=== PATIENT | male | born 1990 | race Two or more races ===

== ENCOUNTER 2024-09-15 14:12 | Emergency (ER) | payer MEDICAID, SELFPAY ==
[2024-09-15 14:14] VITALS: BMI 24.0
[2024-09-15 15:03] VITALS: BP 109/78; PULSE 72; RESP 18; TEMP 37.2; O2SAT 98
--- NOTE | 2024-09-15 15:21 | PD.EDHA ---
ED Headache RME/HPI General Chief Complaint: Headache Stated Complaint: Left face pain x 8 mo. Pain 05/03 Time Seen by Provider: 09/15/24 14:54 Arrival date/time: 09/15/24 14:12 left side face pain for 8months Related Data Previous Rx's ?Medication ?Instructions ?Recorded gabapentin 100 mg capsule 100 mg PO TID PRN nerve pain #60 09/15/24 caps Allergies Allergy/AdvReac Type Severity Reaction Status Date / Time No Known Allergies Allergy Verified 05/31/22 08:26 Review of Systems Review of Systems Systems Reviewed: All systems reviewed, normal except as documented Narrative Review of Systems: Gen: No fever, no chills, no weight loss EYES: No discharge, no visual changes, no pain HEENT: No ear pain, no congestion, no sore throat PULM: No shortness of breath, no cough, no congestion CV: No chest pain, no dyspnea on exertion, no palpitations GI: No nausea, no vomiting, no diarrhea, no pain, no constipation : No frequency, no urgency,? no dysuria Musc/skel: No joint pain, no back pain Skin: No rash? Psyc: No hallucinations, no depression Heme/Lymph: No easy bleeding or bruising tendencies Neuro: No weakness, no headache ED Exam Narrative Physical exam: General: Sittiing in Exam table in no acute distress, answering questions appropriately HENT: normocephalic, atraumatic, EOMI, PERRLA, moist mucous membranes Chest: chest wall is nontender Cardiac: regular rate and rhythm, normal S1 and S2, no murmurs, rubs, or gallops, capillary refill ?2 seconds Pulmonary: clear to auscultation bilaterally, no wheezing, crackles, or rhonchi Abdominal: active bowel sounds, soft, nontender, nondistended Neuro: A&OX3, CN II-XII intact, sensation grossly intact bilaterally in UE and LE. Skin: no rashes, no ecchymosis Ext: no lower extremity edema Course Quality Measures none Vital Signs Vital signs: Vital Signs Temperature 98.9 F 09/15/24 15:03 Pulse Rate 72 09/15/24 15:03 Respiratory Rate 18 09/15/24 15:03 Blood Pressure 109/78 09/15/24 15:03 Pulse Oximetry (%) 98 09/15/24 15:03 Oxygen Delivery Method Room Air 09/15/24 15:03 Headache Patient data External records reviewed:: [facility] previous records Clinical information provided by:: patient Social determinants that could affect healthcare access:: none Patient has the following chronic illnesses:: none How is presenting disease/condition affected by chronic disease/condition?: no chronic disease Evaluation data The following diagnostics were reviewed and interpreted by me:: other (specify) Lab and/or radiology exams considered but not ordered:: none Interpretation Summary: none Medications / Prescriptions Medications or Prescriptions considered but not ordered:: none Medication administrations:: none Consultations Consultation(s) initiated? (list below): No Diagnosis Differential diagnosis headache: other Most likely diagnosis given after review of the tests above:: Trigeminal Nerve Disorder Admission Indicated Admission indicated?: not indicated Admission Request Was there a request for admission?: No Disposition Plan Disposition Plan: Discharge Discharge Attestation Discharge Attestation: The patient and all family members were given an opportunity to ask questions and understood the discharge instructions. Discharge instructions specifically effects, indications for sooner follow up or return to the emergency department, and the expected course of current diagnosis. Patient condition: Stable Discharge Plan Plan Patient Disposition: HOME (Self Care) Patient condition on transfer: Stable Prescriptions/Referrals Prescriptions/Med Rec: New gabapentin 100 mg capsule 100 mg PO TID PRN (Reason: nerve pain) Qty: 60 0RF Problem List Clinical Impression: Trigeminal nerve disorder Patient/Caregiver Discharge Instructions Discharge Activity: activity as tolerated Additional Instructions: Please keep your appointment with your neurologist. Start gabapentin 100 mg 3 times a day Follow-up with your primary doctor as directed. Return to the emergency department this any worsening symptoms new condition. 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
== END 2024-09-15 16:20 | disposition home or self-care (01) ==
LOC: SERX 16:13
PROVIDERS: Emergency Provider Emergency Medicine; PCP Nurse Practitioner Family
DX: G50.9 Disorder of trigeminal nerve, unspecified (principal)
CPT/HCPCS: 99281

== ENCOUNTER 2025-06-03 18:36 | Emergency (ER) | payer MEDICAID, SELFPAY ==
[2025-06-03 18:36] VITALS: BMI 24.7
[2025-06-03 20:46] VITALS: BP 119/76; PULSE 75; RESP 16; TEMP 36.7; O2SAT 97
--- NOTE | 2025-06-03 21:10 | XR_ITS ---
EXAMINATION: Testicular sonography complete TECHNIQUE: Grayscale sonographic images testes, assessment arterial inflow and venous outflow with Doppler spectral analysis color flow analysis Date and time: June 03, 2025, 2127 hours, comparison May 31, 2022 INDICATIONS: Bilateral testicular swelling and pain beginning 3 days ago. FINDINGS: Right testis 5.1 cm epididymis 14 mm Arterial flow the testicle. No testicular mass Minimal hydrocele Left testis 4.6 cm epididymis 14 mm Arterial flow to the testicle. Appendix testis 4 x 5 mm No testicular mass Mild hydrocele IMPRESSION: No testicular torsion or testicular mass Mild bilateral hydroceles
--- NOTE | 2025-06-03 21:10 | PD.EDRME ---
Rapid Medical Screening Exam E Arrival date/time: 06/03/25 18:36 34-year-old male reports with complaints of right testicular pain after an examination from his provider 2 days ago Chief Complaint: Urogenital-Male Time Seen by Provider: 06/03/25 20:55 Vital signs: Vital Signs Temperature 98.1 F 06/03/25 20:46 Pulse Rate 75 06/03/25 20:46 Respiratory Rate 16 06/03/25 20:46 Blood Pressure 119/76 06/03/25 20:46 Pulse Oximetry (%) 97 06/03/25 20:46 Oxygen Delivery Method Room Air 06/03/25 20:46 Exam: ? Clinical Impression: ?
--- NOTE | 2025-06-03 22:21 | PD.EDMALE ---
ED Male Genitalurinary RME/HPI General Chief complaint: Urogenital-Male Stated complaint: TESTICLE PAIN/SWELLING X 3 DAYS Time Seen by Provider: 06/03/25 20:55 Arrival date/time: 06/03/25 18:36 RME / HPI RME / HPI Narrative: 06/03/25 18:36 34-year-old male reports with complaints of right testicular pain after an examination from his provider [address] 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 No dysuria or urgency, but reports frequency. Reports mild suprapubic abdominal tenderness. No fever, chills, or diarrhea. PMH unremarkable. Related Data Previous Rx's ?Medication ?Instructions ?Recorded gabapentin 100 mg capsule 100 mg PO TID PRN nerve pain #60 09/15/24 caps ciprofloxacin HCl 500 mg tablet 500 mg PO BID 10 days #20 tabs 06/03/25 (Cipro) naproxen 250 mg tablet 250 mg PO BID PRN pain #10 tabs 06/03/25 Allergies Allergy/AdvReac Type Severity Reaction Status Date / Time No Known Allergies Allergy Verified 06/03/25 18:38 Review of Systems Review of Systems Systems Reviewed: All systems reviewed, normal except as documented Past Medical History Past Medical History CARDIAC: Negative Congestive Heart Failure RESPIRATORY: Negative Chronic Obstructive Pulmonary Disease (COPD) GENITOURINARY: Negative Renal Disease ENDOCRINE: Negative Diabetes Mellitus Type 1 or Diabetes Mellitus Type 2 Social History SMOKING STATUS: Current every day smoker ED Exam Narrative Physical exam: GENERAL APPEARANCE: alert and oriented x 4, well-developed, well-nourished, no acute distress VITALS: All vitals were reviewed and the pulse ox is 97% on room air, which is normal according to my interpretation. HEENT: Normocephalic, atraumatic; pupils equal, round, reactive to light; EOMI; mucous membranes pink, moist; oropharynx clear NECK: Supple LUNGS: CTABL; no wheezes, no rales, no rhonchi HEART: Regular rate, regular rhythm; normal S1, S2; no murmurs ABDOMEN: non distended; soft, no tenderness : normal male phallus, no penile discharge, no shaft edema or tenderness, testicles are downward bilaterally, no scrotal edema, right>left cord tenderness EXTREMITIES: atraumatic; no edema NEUROLOGIC: awake; alert and oriented x4; cranial nerves II-XII grossly intact; no focal sensory or motor deficits PSYCHIATRIC: appropriate mood and affect SKIN: warm, dry, normal color; no rashes Course Quality Measures none Orders Category Date Time Status US scrotum Stat Exams 06/03/25 21:10 Completed Urinalysis, C/S if Indicated Stat Lab 06/03/25 22:42 Ordered Ibuprofen Tab [Motrin Tab] Med 06/03/25 22:45 Once 600 mg PO X1 ONE Vital Signs Vital signs: Vital Signs Temperature 98.1 F 06/03/25 20:46 Pulse Rate 75 06/03/25 20:46 Respiratory Rate 16 06/03/25 20:46 Blood Pressure 119/76 06/03/25 20:46 Pulse Oximetry (%) 97 06/03/25 20:46 Oxygen Delivery Method Room Air 06/03/25 20:46 Urogenital - Male MDM Narrative MDM Narrative:: Scribe Attestation: 06/03/25 - Jojo Albert am scribing for and in the presence of Dr. Lee. 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 No dysuria or urgency, but reports frequency. Please see PE findings. Testicular US without evidence of torsion, small bilateral hydroceles present. Given patient's urinary irritative symptoms, will treat empirically for suspected early epididymitis. Patient will be prescribed antibiotics and an anti-inflammatory, and will be encouraged to do scrotal support and follow-up with a urologist with 1-2 weeks. Patient data External records reviewed:: [facility] previous records (Per chart review, patient was seen here on 09/15/24 for trigeminal nerve disorder.) Clinical information provided by:: patient Social determinants that could affect healthcare access:: none Patient has the following chronic illnesses:: none How is presenting disease/condition affected by chronic disease/condition?: no chronic disease Evaluation data The following diagnostics were reviewed and interpreted by me:: radiology exam(s) Lab and/or radiology exams considered but not ordered:: none Interpretation Summary: [place] Report Signed Patient: MANDEEP NESS [facility]. Record#: [id number] Birthdate: 1990 Age/Sex: 34 / M Location: [facility] Attending Dr: Ordering Physician: Kenan Gee PA-C Date of Service: 06/03/25 Procedure(s): US scrotum Accession Number(s): [id number] cc: Rito Glasgow MD; James Sheldon MD; Kenan Gee PA-C~ EXAMINATION: Testicular sonography complete TECHNIQUE: Grayscale sonographic images testes, assessment arterial inflow and venous outflow with Doppler spectral analysis color flow analysis Date and time: June 03, 2025, 212 hours, comparison May 31, 2022 INDICATIONS: Bilateral testicular swelling and pain beginning 3 days ago. FINDINGS: Right testis 5.1 cm epididymis 14 mm Arterial flow the testicle. No testicular mass Minimal hydrocele Left testis 4.6 cm epididymis 14 mm Arterial flow to the testicle. Appendix testis 4 x 5 mm No testicular mass Mild hydrocele IMPRESSION: No testicular torsion or testicular mass Mild bilateral hydroceles Dictated By: Rito Glasgow MD Signed By: <Electronically signed by Rito Glasgow MD in OV> 06/03/25 2227 Medications / Prescriptions Medications or Prescriptions considered but not ordered:: none Medication administrations:: Medication Administration History Ibuprofen (Ibuprofen Tab 600 Mg Tablet) 600 mg PO X1 ONE Stop: 06/03/25 22:46 none Consultations Consultation(s) initiated? (list below): No Diagnosis Urogenital Male Differential Diagnosis: urinary tract infection, epididymitis, prostatitis and inguinal hernia Most likely diagnosis given after review of the tests above:: see clinical impression below Admission Indicated Admission indicated?: not indicated Admission Request Was there a request for admission?: No Disposition Plan Disposition Plan: Discharge Discharge Attestation Discharge Attestation: The patient and all family members were given an opportunity to ask questions and understood the discharge instructions. Discharge instructions specifically effects, indications for sooner follow up or return to the emergency department, and the expected course of current diagnosis. Patient condition: Stable Discharge Plan Plan Patient Disposition: HOME (Self Care) Discharge Disposition comment: Stable Prescriptions/Referrals Prescriptions/Med Rec: New ciprofloxacin HCl [Cipro] 500 mg tablet 500 mg PO BID 10 Days Qty: 20 0RF naproxen 250 mg tablet 250 mg PO BID PRN (Reason: pain) Qty: 10 0RF No Action gabapentin 100 mg capsule 100 mg PO TID PRN (Reason: nerve pain) Qty: 60 0RF Referrals: James Sheldon MD [Primary Care Provider] - In 1 week Problem List Clinical Impression: Testalgia, Hydrocele, bilateral Impression comment: testalgia Patient/Caregiver Discharge Instructions Diet Instructions: Force fluids Education Materials: ED Hydrocele, Type Not Specified, ED Testicular Pain, Unclear Cause Additional Instructions: Warm compresses i.e. sitz bath's twice daily. Medication as directed. Scrotal support/follow-up with urologist in 1 to 2 weeks and return if worsening i.e. fever increasing pain swelling etc Print Language: Amharic Stand Alone Forms: Karen Award Info., Patient Portal Info Letter
[2025-06-03] MEDS: IBUPROFEN TAB 600 MG TABLET PO (23:21)
[2025-06-03 23:22] VITALS: BP 115/79; PULSE 65; RESP 16; TEMP 36.3; O2SAT 98
[2025-06-03 23:31] LABS: Collection Type, Urine Clean Catch; Squamous Epithelial Cell,Urine 0 /hpf (0-5)
[2025-06-03 23:34] LABS: Bilirubin,Urine Negative (Negative); Blood,Urine Negative (Negative); Clarity,Urine Clear (Clear/Hazy); Color,Urine Lt-Yellow (Lt Yel-Yel); Culture Indicated,Urine Not Indicated; Glucose, Urine Negative (Negative); Ketones,Urine Negative (Negative); Leukocyte Esterase,Urine Negative (Negative); Nitrite,Urine Negative (Negative); PH,Urine 6.0 (5.0-7.0); Protein,Urine Negative (Neg - Trace); RBC,Urine 3 /hpf (0-3); Specific Gravity,Urine 1.026 (1.001-1.035); Urobilinogen,Urine Negative mg/dL (0.0-1.0); WBC,Urine 1 /hpf (0-5)
== END 2025-06-03 23:35 | disposition home or self-care (01) ==
PROVIDERS: Emergency Medicine; Emergency Provider Physician Assistant; PCP Family Medicine
DX: N43.3 Hydrocele, unspecified (principal)
CPT/HCPCS: 76870; 81001; 99283; A9270

== ENCOUNTER → 2025-07-08 | Outpatient (CLI) | payer MEDICAID, SELFPAY ==
[2025-07-08 08:28] VITALS: BMI 22.1
[2025-07-08 08:56] LABS: Basophils % (Auto) 1 % (0-2.5); Eosinophils % (Auto) 2 % (0-10); Hematocrit 39.0 % (41.0-53.0); Hemoglobin 13.5 g/dL (13.5-16.0); Lymphocytes % (Auto) 32 % (10-50); Mean Corpuscular HGB Conc 34.6 g/dl (31.0-37.0); Mean Corpuscular Hemoglobin 31.0 pg (25.0-35.0); Mean Corpuscular Volume 90 fL (80-100); Monocytes % (Auto) 7 % (0-12); Neutrophils # (Auto) 3.6 Thou/mm3 (1.8-7.7); Neutrophils % (Auto) 58 % (37-80); Platelet Count 207 Thou/mm3 (140-440); RDW Standard Deviation 42.9 fL (35.1-43.9); Red Blood Count 4.35 Miln/mm3 (4.50-5.90); White Blood Count 6.1 Thou/mm3 (3.8-10.6)
[2025-07-08 08:57] LABS: Basophils # (Auto) 0.1 Thou/mm3 (0.0-0.2); Eosinophils # (Auto) 0.1 Thou/mm3 (0.0-0.5); Immature Granulocytes Auto 0.02 Thou/mm3 (0.00-0.00); Lymphocytes # (Auto) 2.0 Thou/mm3 (1.0-4.8); Monocytes # (Auto) 0.4 Thou/mm3 (0.0-0.8); Nucleated Red Blood Cell # 0.00 Thou/mm3 (0.00-0.00); Nucleated Red Blood Cell % 0 /100 WBC (0)
[2025-07-08 09:19] LABS: Anion Gap 9 (7-16); BUN/Creatinine Ratio 15 Ratio (12-20); Blood Urea Nitrogen 12 mg/dL (9-23); Calcium 9.1 mg/dL (8.3-10.6); Carbon Dioxide 29.0 mMol/L (20.0-31.0); Chloride 105 mMol/L (98-107); Creatinine (Component) 0.8 mg/dL (0.6-1.3); Estimated Creatinine Clearance 121.7 mL/min (>60); Glucose 95 mg/dL (74-106); Osmolality,Calculated 284 (275-295); Potassium 4.1 mMol/L (3.4-5.1); Sodium 143 mMol/L (136-145); eGFR > 60 See Note
--- NOTE | 2025-07-08 11:36 | ESHP_ITS ---
RE: MANDEEP NESS : 1990 DATE OF ADMISSION: 07/08/25 HISTORY OF PRESENT ILLNESS: Patient is a 34-year-old gentleman who has 11 children and he wishes to have bilateral vasectomy for family planning. PAST SURGICAL HISTORY: Previous surgeries included circumcision. PAST MEDICAL HISTORY: Patient does not have any history of diabetes mellitus, no history of hypertension. ALLERGIES: NONE KNOWN. MEDICATIONS: None. PHYSICAL EXAMINATION: HEENT: Normal. NECK: Supple. LUNGS: Clear. HEART: Sounds are normal. ABDOMEN: Soft without any organomegaly. No guarding. No rigidity. EXTREMITIES: Normal. GENITOURINARY: Phallus is normal. Testes are down in the scrotum. IMPRESSION: Patient desiring bilateral vasectomy for family planning. PLAN: Planned procedure, risks, and complications have been discussed with the patient. Patient has understood them and agreed to proceed. DT: 11:23:41 TT: 11:35:00 Ref: [id number] - TID: [id number]
== END | disposition home or self-care (01) ==
LOC: SLAB 07-10 08:32
PROVIDERS: PCP Nurse Practitioner Family; Referring Provider Surgery; Visit Provider Surgery
PROC: (CPT 55250; principal; 2025-07-09 08:30)
DX: Z98.52 Vasectomy status (principal)
CPT/HCPCS: 36415; 80048; 85025